=== PATIENT | female | born 1975 | race Asian ===

== ENCOUNTER 2022-10-22 08:25 | Emergency (ER) | payer BC, OTHER ==
[~2022-10-22] VITALS: Ht 160 cm; Wt 77.1 kg
[2022-10-22 08:52] VITALS: BP_SYST 159; PULSE 103; RESP 20; TEMP 98.3; O2SAT 96
--- NOTE | 2022-10-22 08:52 | NUR ---
Patient to ER bed 02 to gown for evaluation. Side rails up.
--- NOTE | 2022-10-22 09:10 | NUR ---
ER DR. CARDENAS AT THE BEDSIDE EXAMINING PT
--- NOTE | 2022-10-22 09:15 | NUR ---
Pt BIB daughter, AxOx4. She reports she was at the gym approx 35 min ago doing sit-ups when she experienced loss of vision and possible loss of consciousness. Pt reports she was still able to hear what was happening but was disoriented. Pt denies any past pertinent medical history and has never had episodes such as this one happen. She is not taking any medications at this time.
[2022-10-22 09:33] LABS: BASOPHILS # (AUTO) 0.1 K/uL (0.0-0.2); BASOPHILS % (AUTO) 1.2 % (0.0-2.0); EOSINOPHILS # (AUTO) 0.1 K/uL (0.0-0.4); EOSINOPHILS % (AUTO) 0.8 % (0.0-4.0); HEMATOCRIT 33.8 % (36-48); HEMOGLOBIN 10.4 g/dL (12.0-16.0); LYMPHOCYTES # (AUTO) 2.2 K/uL (1.0-5.5); LYMPHOCYTES % (AUTO) 28.1 % (20.5-51.5); MEAN CORPUSCULAR HEMOGLOBIN 21 pg (27-31); MEAN CORPUSCULAR HGB CONC 31 % (32-36); MEAN CORPUSCULAR VOLUME 69 fL (79.0-98.0); MONOCYTES # (AUTO) 0.4 K/uL (0.0-1.0); MONOCYTES % (AUTO) 5.7 % (1.7-9.3); NEUTROPHILS % (AUTO) 64.2 % (40.0-70.0); PLATELET COUNT (AUTO) 420 K/uL (130-430); RED BLOOD CELL COUNT(AUTO) 4.87 MIL/uL (4.2-6.2); RED CELL DISTRIBUTION WIDTH 18.9 % (9.0-15.0); WHITE BLOOD COUNT (AUTO) 7.7 K/uL (4.8-10.8)
[2022-10-22 09:49] LABS: ANION GAP 7 (5-15); CALCIUM 8.5 mg/dL (8.4-11.0); CHLORIDE 103 mmol/L (98-107); CREATININE 0.79 mg/dL (0.55-1.30); GFR AFRICAN AMERICAN 99 mL/min (>90); GLUCOSE 97 mg/dL (74-106); UREA NITROGEN, BLOOD 9 mg/dL (8-21)
[2022-10-22 09:52] LABS: PROTHROMBIN TIME 10.3 SECS (9.5-12.5)
[2022-10-22 09:56] LABS: ALANINE AMINOTRANSFERASE 31 U/L (12-78); ALBUMIN 3.5 g/dL (3.4-4.8); ASPARTATE AMINOTRANSFERASE 15 U/L (10-37); TOTAL BILIRUBIN 0.5 mg/dL (0.0-1.0)
[2022-10-22 10:15] LABS: ALCOHOL, BLOOD < 3 mg/dL (<10)
[2022-10-22 10:43] LABS: BILIRUBIN,URINE NEGATIVE (NEGATIVE); BLOOD, URINE NEGATIVE (NEGATIVE); CLARITY/URINE CLEAR (CLEAR); COLOR,URINE YELLOW (YELLOW); GLUCOSE,URINE NEGATIVE (NEGATIVE); KETONES,URINE NEGATIVE (NEGATIVE); LEUKOCYTE ESTERASE ,URINE NEGATIVE (NEGATIVE); NITRITE, URINE NEGATIVE (NEGATIVE); PH,URINE 6.5 (5.0-8.0); PROTEIN URINE NEGATIVE (NEGATIVE); UROBILINOGEN,URINE 0.2 (0.2-1.0)
[2022-10-22 11:12] LABS: BARBITURATE, URINE NEGATIVE (NEG <=200); BENZODIAZEPINE, URINE NEGATIVE (NEG <=150); CANNABINOID, URINE NEGATIVE (NEG <=50); COCAINE, URINE NEGATIVE (NEG <=150); METHAMPHETAMINES SCREEN,URINE NEGATIVE (NEG <=500); OPIATE, URINE NEGATIVE (NEG <=100); PHENCYCLIDINE SCREEN,URINE NEGATIVE (NEG <=25); UR TRICYCLIC ANTIDEPRESSANTS NEGATIVE (NEG <=300); URINE AMPHETAMINE NEGATIVE (NEG <=500); URINE METHADONE NEGATIVE (NEG <=200); URINE OXYCODONE SCREEN NEGATIVE (NEG <=100); URINE PROPOXYPHENE SCREEN NEGATIVE (NEG <=300)
[2022-10-22] MEDS ORDERED: CEPH-548 PO (12:06)
--- NOTE | 2022-10-22 12:30 | NUR ---
Patient given written and verbal discharge instructions and verbalizes understanding. ER MD discussed with patient the results and treatment provided. Patient in stable condition. ID arm band removed. IV catheter removed intact and dressing applied, no active bleeding.
[2022-10-22 14:19] VITALS: BP_SYST 159; PULSE 103; RESP 20; TEMP 98.3; O2SAT 96
== END 2022-10-22 12:30 | disposition home or self-care (01) ==
LOC: SED 08:25
DX: R55 Syncope and collapse (principal); R41.0 Disorientation, unspecified; R42 Dizziness and giddiness; R41.3 Other amnesia; Z79.899 Other long term (current) drug therapy
CPT/HCPCS: 99285; 70450; 71045; 80307; 80053; 85025; 85610; 85730; 84484; 36415; 93005; 76376; 81003; G0482